=== PATIENT | female | born 2000 | race Caucasian/White ===

== ENCOUNTER 2020-09-24 23:25 | Observation (INO) ==
--- OUTSIDE RECORDS SUMMARY | 2020-09-24 23:28 | External Medical Summary | Continuity of Care Document ---
:2000 Author Name Rain Pompa Address Unavailable Unavailable , Care Team Providers Name Role Phone Ike SKAGGS Unavailable [email or web address] [place], NO Unavailable Unavailable Unavailable Unavailable Unavailable Assessments Assessed Problems:General counselling and advice on contraception Problems General counselling and advice on contraception (V25.09) (Z3 0.09) Allergies and Adverse Reactions Penicillins (Allergy) Medications Blisovi 24 Fe 1-20 MG-MCG(24) Oral Tablet Refills: 0 Calcium Gummies CHEW Refills: 0 Procedures History of wisdom tooth extraction Statu s: Completed Immunizations Immunizations not documented Family History Mother Family history of malignant neoplasm of cervix (V16.49) (Z80 .49) Status: Active Grandmother Family history of malignant neoplasm of cervix (V16.49) (Z80 .49) Status: Active Social History - Smoking Status Never smoked tobacco Interventions Discussion/SummaryReviewed various contraception methods, risks, benefits and side effects of each, including but not limited to BESSIE, vaginal ring, POP, IUD, implant, shot, barrier methods etc.Most interested in Nexplanon. Insurance paperwork and pamphlet provided to patient. Scheduling procedure reviewed. If she has missed any OCP doses recommend test prior to insertion. Plan of Treatment Planned Observations Planned Goals not documented Results No Known Results Results not documented Encounters Appointment; Janett Ramires PA-C 19-Feb-2017 14:20 Encounter Diagnosis: Problem not documented
[2020-09-25] MEDS ORDERED: ONDANSETRON INJ 2 MG/ML 2 ML VIAL IV STA ×2 (00:05→01:32)
[2020-09-25] MEDS ORDERED: SODIUM CHLORIDE 0.9% 500 ML IV ONE (00:05)
[2020-09-25] MEDS ORDERED: SODIUM CHLORIDE 0.9% 1000ML 1,000 ML IV ONE (00:05)
[2020-09-25] MEDS ORDERED: KETOROLAC TROMETHAMINE 15 MG/ML VIAL IV ONE ×2 (00:05→04:28)
--- NOTE | 2020-09-25 00:12 | Emergency Department Note ---
History of Present Illness General Chief complaint: Flank Pain Stated complaint: Pain in back Time Seen by Provider: 09/24/20 23:40 Source: patient Mode of arrival: ambulatory Limitations: no limitations History of Present Illness Maximum Pain Intensity: 7 This patient is a 20-year-old female who presents to the emergency department for evaluation of back pain and UTI. Patient was seen at [facility] yesterday due to flank pain and several weeks of urinary symptoms. She states that she did have a fever at that time. She was diagnosed with a UTI and possibly a kidney stone or kidney infection, but sent home on antibiotics. She states that the flank pain started 4 days ago and was initially intermittent. She attributed it to muscle soreness from working out. She has had some nausea, but no vomiting. She had some slight burning and frequency for the past 4 weeks. She states the symptoms were not severe. She reports she has had urinary symptoms in the past but does not take any antibiotics for them. Since being seen yesterday, she is having increased nausea and pain in her abdomen. She has been taking Tylenol for fevers and pain without relief. She rates her discomfort a 7/10. Home Medications Medication Instructions Recorded Confirmed Type Control Pill 1 tab PO DAILY 09/25/20 09/25/20 History acetaminophen [Tylenol Extra 500 mg PO DIRECTED PRN 09/25/20 09/25/20 History Strength] phenazopyridine [Pyridium] 200 mg PO TID PRN 09/25/20 09/25/20 History sulfamethoxazole-trimethoprim 1 tab PO BID 09/25/20 09/25/20 History [Bactrim DS] sumatriptan succinate 0 mg PO .COMPLEX 09/25/20 09/25/20 History Allergies Allergy/AdvReac Type Severity Reaction Status Date / Time Penicillins Allergy Unknown STRONG Verified 09/25/20 00:04 FAMILY HX OF REACTIONS Past Med/Surg History Medical History Migraines Surgical History History of mandibular surgery Family History (Updated 09/25/20 @ 03:45 by Lourdes Norman DO) Other Coronary heart disease Dementia Social History Smoking Status: Never smoker Hx Alcohol Use: Yes Alcohol type: beer, wine and hard liquor Hx Substance Use: No Preferred Language: Pashto Communication Ability: Effective Beliefs That Will Affect Care: None Current Living Situation: Alone Feels Safe at Home: Yes Assistive Devices: None Review of Systems A total of 10 systems reviewed and were otherwise negative Physical Exam Vital Signs Vital Signs - 24 hr 09/24/20 23:34 Temperature 36.4 C L Temperature Source Temporal Artery Scan Pulse Rate 113 H Respiratory Rate 20 Respiratory Depth Shallow Blood Pressure 120/85 Blood Pressure Mean 96 Pulse Oximetry 97 Oxygen Delivery Method Room Air Sepsis Recent Fever Within 48 Hours Yes Sepsis New/Unexplained Change in Mental Status No Sepsis Action Taken by Nursing No Action Required VITALS: Vitals are noted on the nurse's note and reviewed by myself. GENERAL: This is a 20-year-old female, in no acute distress, well-developed well-nourished. SKIN: The skin was without rashes. Skin is clammy. EARS: External auditory canals clear, tympanic membranes pearly gutiérrez without erythema or effusion bilaterally. EYES: Pupils equal round and reactive to light and accommodation. MOUTH: Mucous membranes moist. Tonsils are not enlarged. Pharynx without erythema or exudate. NECK: Supple without nuchal rigidity. No lymphadenopathy. HEART: Regular rate and rhythm without murmurs gallops or rubs. LUNGS: Clear to auscultation bilaterally without wheezes, rales or rhonchi. ABDOMEN: Positive bowel sounds x 4. Soft, tenderness to palpation in the epigastric region and left upper quadrant. No guarding or rebound tenderness. NEURO: Patient was alert and oriented to person place and time. Course Consultations Consultation #1: Dr. Norman - [facility] hospitalist Administered Medications Acetaminophen (Acetaminophen 325 Mg Tab) 650 mg PO Q4H PRN PRN Reason: pain or fever Stop: 10/25/20 10:55 Last Admin: 09/25/20 23:06 Dose: 650 mg Documented by: [id number] Admin: 09/25/20 19:38 Dose: 650 mg Documented by: [id number] Ceftriaxone Sodium 1,000 mg/ (Dextrose) 50 mls @ 100 mls/hr IV Q24H ERUM; Prot ocol Stop: 10/04/20 21:59 Last Infusion: 09/25/20 22:20 Dose: 0 mls/hr Documented by: [id number] Admin: 09/25/20 21:49 Dose: 100 mls/hr Documented by: [id number] Potassium Chloride/Sodium Chloride (Normal Saline W/20 Meq Kcl) 20 meq in 1,000 mls @ 80 mls/hr IV .[id number] [facility] [place] Stop: 10/25/20 18:59 Last Admin: 09/25/20 19:35 Dose: 80 mls/hr Documented by: [id number] Ketorolac Tromethamine (Ketorolac Tromethamine 15 Mg/Ml Vial) 10 mg IV Q6H PRN PRN Reason: Pain Stop: 09/30/20 07:42 Last Admin: 09/25/20 21:49 Dose: 10 mg Documented by: [id number] Admin: 09/25/20 16:17 Dose: 10 mg Documented by: [id number] Admin: 09/25/20 09:34 Dose: 10 mg Documented by: [id number] Miscellaneous ( Control Pill: Order Awaiting Action) 1 ea N/A DAILY [facility] Stop: 10/25/20 08:59 Last Admin: 09/25/20 07:50 Dose: Not Given Documented by: [id number] Ondansetron HCl (Ondansetron Inj 2 Mg/Ml 2 Ml Vial) 4 mg IV Q4H PRN PRN Reason: Nausea Stop: 10/25/20 07:43 Last Admin: 09/25/20 23:01 Dose: 4 mg Documented by: [id number] Admin: 09/25/20 17:56 Dose: 4 mg Documented by: [id number] Phenazopyridine HCl (Phenazopyridine Hcl 200 Mg Tab) 200 mg PO TID PRN PRN Reason: BLADDER PAIN Stop: 10/25/20 04:27 Last Admin: 09/25/20 23:01 Dose: 200 mg Documented by: [id number] Admin: 09/25/20 17:35 Dose: 200 mg Documented by: [id number] Polyethylene Glycol (Polyethylene (Miralax) 17 Gm Pack) 17 gm PO DAILY ERUM Stop: 10/25/20 11:29 Last Admin: 09/25/20 11:33 Dose: 17 gm Documented by: [id number] Discontinued Medications Sodium Chloride (Nss 1000ml) 1,000 mls @ 999 mls/hr IV .Q1H1M ONE Stop: 09/25/20 01:05 Last Infusion: 09/25/20 01:39 Dose: 0 mls/hr Documented by: [id number] Admin: 09/25/20 00:28 Dose: 999 mls/hr Documented by: [id number] Sodium Chloride (Nss) 500 mls @ 999 mls/hr IV .Q31M ONE Stop: 09/25/20 00:35 Last Infusion: 09/25/20 01:39 Dose: 0 mls/hr Documented by: [id number] Admin: 09/25/20 00:28 Dose: 999 mls/hr Documented by: [id number] Ceftriaxone Sodium (Rocephin) 1,000 mg in 50 mls @ 100 mls/hr IV NOW STA Stop: 09/25/20 02:06 Last Infusion: 09/25/20 02:14 Dose: 0 mls/hr Documented by: [id number] Admin: 09/25/20 01:44 Dose: 100 mls/hr Documented by: [id number] Potassium Chloride 20 meq/ (Lactated Ringer's) 1,010 mls @ 100 mls/hr IV .Q10H6M ERUM Stop: 09/25/20 12:54 Last Infusion: 09/25/20 14:55 Dose: 0 mls/hr Documented by: [id number] Admin: 09/25/20 06:51 Dose: 125 mls/hr Documented by: [id number] Prochlorperazine 5 mg/ Syringe 5 mls @ 5 mls/min IV ONE ONE Stop: 09/25/20 04:46 Last Admin: 09/25/20 04:50 Dose: Not Given Documented by: [id number] Promethazine HCl 6.25 mg/ (Sodium Chloride) 50.25 mls @ 201 mls/hr IV NOW STA Stop: 09/26/20 00:37 Last Infusion: 09/26/20 01:08 Dose: 0 mls/hr Documented by: [id number] Admin: 09/26/20 00:34 Dose: 201 mls/hr Documented by: [id number] Ioversol (Optiray 320 100ml) 100 ml IV ONCE ONE Stop: 09/25/20 01:27 Last Admin: 09/25/20 01:26 Dose: 76 ml Documented by: [id number] Ketorolac Tromethamine (Ketorolac Tromethamine 15 Mg/Ml Vial) 10 mg IV NOW ONE Stop: 09/25/20 00:06 Last Admin: 09/25/20 00:28 Dose: 10 mg Documented by: [id number] Ketorolac Tromethamine (Ketorolac Tromethamine 15 Mg/Ml Vial) Confirm Administered Dose 15 mg .ROUTE .[place] REI-MED ONE Stop: 09/25/20 03:58 Last Admin: 09/25/20 04:02 Dose: 10 mg Documented by: [id number] Ketorolac Tromethamine (Ketorolac Tromethamine 15 Mg/Ml Vial) 10 mg IV NOW ONE Stop: 09/25/20 04:29 Last Admin: 09/25/20 04:50 Dose: Not Given Documented by: [id number] Morphine Sulfate (Morphine Sulfate 4 Mg/Ml 1 Ml Carp\Vial) 4 mg IV NOW STA Stop: 09/25/20 01:33 Last Admin: 09/25/20 01:38 Dose: 4 mg Documented by: [id number] Morphine Sulfate (Morphine Sulfate 2 Mg/Ml Carp) 2 mg IV NOW STA Stop: 09/26/20 00:13 Last Admin: 09/26/20 00:34 Dose: 2 mg Documented by: [id number] Ondansetron HCl (Ondansetron Inj 2 Mg/Ml 2 Ml Vial) 4 mg IV NOW STA Stop: 09/25/20 00:06 Last Admin: 09/25/20 00:28 Dose: 4 mg Documented by: [id number] Ondansetron HCl (Ondansetron Inj 2 Mg/Ml 2 Ml Vial) 4 mg IV NOW STA Stop: 09/25/20 01:33 Last Admin: 09/25/20 01:38 Dose: 4 mg Documented by: [id number] Prochlorperazine (Prochlorperazine 5 Mg/Ml 2 Ml Vial) Confirm Administered Dose 10 mg .ROUTE .[place] [facility] ONE Stop: 09/25/20 03:57 Last Admin: 09/25/20 04:02 Dose: 5 mg Documented by: [id number] Medical Decision Making Differential Diagnosis Differential diagnosis includes renal calculus, pyelonephritis, musculoskeletal pain, ruptured AAA, aortic dissection, diverticulitis, perforated viscus, bowel obstruction, biliary pathology, pancreatitis, PE, pneumonia, pneumothorax, trauma, herpes zoster, malignancy, among others. Medical Records Attestation: I reviewed the patient's medical records. [facility] notes reviewed: Patient seen 09/23/2020 Patient was tachycardic with heart rate of 138 and febrile with temperature 101.6 F Urinalysis positive blood, positive nitrite, positive leukocytes Patient received oral Tylenol and IM Toradol Diagnosed with uncomplicated UTI and discharged on Bactrim twice daily x7 days Home Medications Current Medication List: was personally reviewed by me Laboratory Data Attestation: I reviewed the patient's lab results. Result diagrams: 09/25/20 00:19 09/25/20 08:24 Lab Results 09/25/20 09/25/20 09/25/20 Range/Units 00:19 00:19 00:19 WBC 14.22 H (4.8-10.8) K/uL RBC 4.48 (4.2-5.4) M/uL Hgb 13.9 (12.0-16.0) g/dL Hct 40.2 (37-47) % MCV 89.7 (80-100) fL MCH 31.0 (25-34) pg MCHC 34.6 (32-36) g/dL RDW Std Deviation 41.0 (36.4-46.3) fL RDW Coeff of Codey 12.5 (11.5-14.5) % Plt Count 223 (130-400) K/uL MPV 9.7 (7.4-10.4) fL Immature Gran % (Auto) 0.3 % Neut % (Auto) 77.5 % Lymph % (Auto) 16.0 % Riley % (Auto) 6.0 % Eos % (Auto) 0.1 % Baso % (Auto) 0.1 % Neut # (Auto) 11.00 H (1.4-6.5) K/uL Lymph # (Auto) 2.28 (1.2-3.4) K/uL Riley # (Auto) 0.86 H (0.11-0.59) K/uL Eos # (Auto) 0.02 (0-0.5) K/uL Baso # (Auto) 0.02 (0-0.2) K/uL Immature Gran # (Auto) 0.04 H (0.00-0.02) K/uL Sodium 138 (136-145) mmol/L Potassium 3.3 L (3.5-5.1) mmol/L Chloride 106 (98-107) mmol/L Carbon Dioxide 23 (21-32) mmol/L Anion Gap 9.0 (3-11) BUN 10 (7-18) mg/dl Creatinine 0.77 (0.6-1.2) mg/dl Est Cr Clr Drug Dosing 86.5 ml/min Est GFR ( Amer) 127.0 Est GFR (Non-Af Amer) 109.6 BUN/Creatinine Ratio 13.5 (10-20) Glucose 104 H (70-99) mg/dl Lactate 1.1 (0.4-2.0) mmol/L Calcium 8.9 (8.5-10.1) mg/dl Total Bilirubin 0.5 (0.2-1) mg/dl AST 53 H (15-37) U/L ALT 100 H (12-78) U/L Alkaline Phosphatase 77 (45-117) U/L Total Protein 8.0 (6.4-8.2) gm/dl Albumin 3.6 (3.4-5.0) gm/dl Globulin 4.4 H (2.5-4.0) gm/dl Albumin/Globulin Ratio 0.8 L (0.9-2) Lipase 54 L (73-393) U/L Urine Color Urine Appearance (Clear) Urine pH (4.5-7.5) Ur Specific [place] (1.000-1.030) Urine Protein (Negative) Urine Glucose (UA) (Negative) Urine Ketones (Negative) Urine Blood (Negative) Urine Nitrite (Negative) Urine Bilirubin (Negative) Urine Urobilinogen (Negative) Ur Leukocyte Esterase (Negative) Urine RBC (0-4) /hpf Urine WBC (0-5) /hpf Ur Epithelial Cells (0-5) /lpf Urine Bacteria (Negative) Urine Mucus (None Prsent) Urine Test (Negative) Acetaminophen (10-30) ug/ml COVID-19 Eval Order SARS-CoV-2 (PCR) (Negative) Influenza Type A (PCR) (Neg) Influenza Type B (PCR) (Neg) RSV (RT-PCR) (Neg) 09/25/20 09/25/20 09/25/20 Range/Units 00:21 00:21 01:30 WBC (4.8-10.8) K/uL RBC (4.2-5.4) M/uL Hgb (12.0-16.0) g/dL Hct (37-47) % MCV (80-100) fL MCH (25-34) pg MCHC (32-36) g/dL RDW Std Deviation (36.4-46.3) fL RDW Coeff of Codey (11.5-14.5) % Plt Count (130-400) K/uL MPV (7.4-10.4) fL Immature Gran % (Auto) % Neut % (Auto) % Lymph % (Auto) % Riley % (Auto) % Eos % (Auto) % Baso % (Auto) % Neut # (Auto) (1.4-6.5) K/uL Lymph # (Auto) (1.2-3.4) K/uL Riley # (Auto) (0.11-0.59) K/uL Eos # (Auto) (0-0.5) K/uL Baso # (Auto) (0-0.2) K/uL Immature Gran # (Auto) (0.00-0.02) K/uL Sodium (136-145) mmol/L Potassium (3.5-5.1) mmol/L Chloride (98-107) mmol/L Carbon Dioxide (21-32) mmol/L Anion Gap (3-11) BUN (7-18) mg/dl Creatinine (0.6-1.2) mg/dl Est Cr Clr Drug Dosing ml/min Est GFR ( Amer) Est GFR (Non-Af Amer) BUN/Creatinine Ratio (10-20) Glucose (70-99) mg/dl Lactate (0.4-2.0) mmol/L Calcium (8.5-10.1) mg/dl Total Bilirubin (0.2-1) mg/dl AST (15-37) U/L ALT (12-78) U/L Alkaline Phosphatase (45-117) U/L Total Protein (6.4-8.2) gm/dl Albumin (3.4-5.0) gm/dl Globulin (2.5-4.0) gm/dl Albumin/Globulin Ratio (0.9-2) Lipase (73-393) U/L Urine Color [place] Urine Appearance Slightly Cloudy (Clear) Urine pH (4.5-7.5) Ur Specific [place] 1.017 (1.000-1.030) Urine Protein (Negative) Urine Glucose (UA) (Negative) Urine Ketones (Negative) Urine Blood (Negative) Urine Nitrite (Negative) Urine Bilirubin (Negative) Urine Urobilinogen (Negative) Ur Leukocyte Esterase (Negative) Urine RBC 0-4 (0-4) /hpf Urine WBC >30 H (0-5) /hpf Ur Epithelial Cells >30 H (0-5) /lpf Urine Bacteria 1+ H (Negative) Urine Mucus Present A (None Prsent) Urine Test Negative (Negative) Acetaminophen 14 (10-30) ug/ml COVID-19 Eval Order SARS-CoV-2 (PCR) (Negative) Influenza Type A (PCR) (Neg) Influenza Type B (PCR) (Neg) RSV (RT-PCR) (Neg) 09/25/20 09/25/20 Range/Units 02:05 02:05 WBC (4.8-10.8) K/uL RBC (4.2-5.4) M/uL Hgb (12.0-16.0) g/dL Hct (37-47) % MCV (80-100) fL MCH (25-34) pg MCHC (32-36) g/dL RDW Std Deviation (36.4-46.3) fL RDW Coeff of Codey (11.5-14.5) % Plt Count (130-400) K/uL MPV (7.4-10.4) fL Immature Gran % (Auto) % Neut % (Auto) % Lymph % (Auto) % Riley % (Auto) % Eos % (Auto) % Baso % (Auto) % Neut # (Auto) (1.4-6.5) K/uL Lymph # (Auto) (1.2-3.4) K/uL Riley # (Auto) (0.11-0.59) K/uL Eos # (Auto) (0-0.5) K/uL Baso # (Auto) (0-0.2) K/uL Immature Gran # (Auto) (0.00-0.02) K/uL Sodium (136-145) mmol/L Potassium (3.5-5.1) mmol/L Chloride (98-107) mmol/L Carbon Dioxide (21-32) mmol/L Anion Gap (3-11) BUN (7-18) mg/dl Creatinine (0.6-1.2) mg/dl Est Cr Clr Drug Dosing ml/min Est GFR ( Amer) Est GFR (Non-Af Amer) BUN/Creatinine Ratio (10-20) Glucose (70-99) mg/dl Lactate (0.4-2.0) mmol/L Calcium (8.5-10.1) mg/dl Total Bilirubin (0.2-1) mg/dl AST (15-37) U/L ALT (12-78) U/L Alkaline Phosphatase (45-117) U/L Total Protein (6.4-8.2) gm/dl Albumin (3.4-5.0) gm/dl Globulin (2.5-4.0) gm/dl Albumin/Globulin Ratio (0.9-2) Lipase (73-393) U/L Urine Color Urine Appearance (Clear) Urine pH (4.5-7.5) Ur Specific [place] (1.000-1.030) Urine Protein (Negative) Urine Glucose (UA) (Negative) Urine Ketones (Negative) Urine Blood (Negative) Urine Nitrite (Negative) Urine Bilirubin (Negative) Urine Urobilinogen (Negative) Ur Leukocyte Esterase (Negative) Urine RBC (0-4) /hpf Urine WBC (0-5) /hpf Ur Epithelial Cells (0-5) /lpf Urine Bacteria (Negative) Urine Mucus (None Prsent) Urine Test (Negative) Acetaminophen (10-30) ug/ml COVID-19 Eval Order CovFluRsv at [facility] SARS-CoV-2 (PCR) NEGATIVE (Negative) Influenza Type A (PCR) Negative (Neg) Influenza Type B (PCR) Negative (Neg) RSV (RT-PCR) Negative (Neg) Imaging Data Attestation: I personally reviewed and interpreted this imaging study as follows: Radiologist's Impression: CT ABDOMEN & PELVIS With Contrast: Heterogeneous enhancement of the left kidney, likely pyelonephritis. Associated urothelial thickening of the left ureter. Correlate with urinalysis. Right kidney is normal. Urinary bladder appears normal. Normal gallbladder. Enlarged common bile duct measuring 8 mm, of uncertain clinical significance. If there is laboratory evidence of biliary obstruction, consider MRCP. No bowel obstruction or inflammation. Normal appendix. No acute osseous findings. Radiologist: Ashley Mcmanus M.D. MDM Narrative Continuous hall monitor: Order was placed for continuous hall monitor. Patient was placed on the hall monitor. Patient was noted to be in sinus tachycardia at an initial rate of 113 bpm. The patient is a 20-year-old female who presents today complaining of flank pain as well as epigastric pain. Patient had been seen yesterday as an outpatient due to flank pain and urinary symptoms. At that time, she had been febrile and tachycardic but was placed on antibiotics and sent home. On arrival here, patient is tachycardic. CT is suggestive of pyelonephritis, although also has an enlarged common bile duct and mild elevation of AST/ALT. Unclear of the significance of this, but will require further work-up. Patient was given IV Rocephin and 1500 mL of normal saline solution (30 mL/kg). She was given Toradol and morphine for pain, Zofran for nausea. The case was discussed with the [facility] hospitalist service, who agreed to evaluate the patient for further care. Impression & Plan Pyelonephritis, Abnormal LFTs, Common bile duct dilatation Discharge Plan Visit Data Chief Complaint: Flank Pain Stated Complaint: Pain in back ED Provider: Sheldon Swan ED Midlevel Provider: Archana Pedro Discharge Problem: Pyelonephritis, Abnormal LFTs, Common bile duct dilatation Patient Disposition: Admitted As Inpatient Discharge Instructions Interventions: ED Discharge Assessment Last Done: 09/25/20 03:54
[2020-09-25 00:32] LABS: Basophils # (auto) 0.02 K/uL (0-0.2); Basophils % (auto) 0.1 %; Eosinophils # (auto) 0.02 K/uL (0-0.5); Eosinophils % (auto) 0.1 %; Hematocrit (blood only) 40.2 % (37-47); Hemoglobin 13.9 g/dL (12.0-16.0); Immature Granulocytes # (auto) 0.04 K/uL (0.00-0.02); Immature Granulocytes % (auto) 0.3 %; Lymphocytes # (auto) 2.28 K/uL (1.2-3.4); Mean Corpuscular Hgb Conc 34.6 g/dL (32-36); Mean Corpuscular Volume 89.7 fL (80-100); Mean Platelet Volume 9.7 fL (7.4-10.4); Monocytes # (auto) 0.86 K/uL (0.11-0.59); Neutrophils % (auto) 77.5 %; Platelet Count 223 K/uL (130-400); RDW Coefficient of Variation 12.5 % (11.5-14.5); Red Blood Count 4.48 M/uL (4.2-5.4); White Blood Count 14.22 K/uL (4.8-10.8)
[2020-09-25 00:47] LABS: Color Urine Orange
[2020-09-25 00:48] LABS: Appearance Urine Slightly Cloudy (Clear); Specific Gravity Urine 1.017 (1.000-1.030)
[2020-09-25 00:50] LABS: Albumin Level 3.6 gm/dl (3.4-5.0); BUN Creatinine Ratio 13.5 (10-20); Calcium 8.9 mg/dl (8.5-10.1); Creatinine Clr Calc Pharmacy 86.5 ml/min; Est GFR (Non-African American) 109.6; Potassium 3.3 mmol/L (3.5-5.1)
[2020-09-25 00:50] LABS: Bacteria Urine 1+ (Negative); Epithelial Cell Urine >30 /lpf (0-5); Mucus Urine Present (None Prsent); WBC Urine >30 /hpf (0-5)
[2020-09-25 00:53] LABS: Albumin Globulin Ratio 0.8 (0.9-2); Bilirubin,Total 0.5 mg/dl (0.2-1); Globulin 4.4 gm/dl (2.5-4.0)
[2020-09-25 00:57] LABS: RBC Urine 0-4 /hpf (0-4)
[2020-09-25 01:03] LABS: Pregnancy Test, Urine Negative (Negative)
[2020-09-25] MEDS ORDERED: OPTIRAY 320 100ml IV ONE (01:26)
[2020-09-25] MEDS ORDERED: MoRPHine SULFATE 4 MG/ML 1 ML CARP\\VIAL IV STA (01:32)
[2020-09-25] MEDS ORDERED: cefTRIAXone SODIUM 1,000 MG/50 ML BAG IV STA (01:37)
[2020-09-25 02:49] LABS: Influenza A virus by PCR Negative (Neg); Influenza B virus by PCR Negative (Neg); RSV by PCR Negative (Neg); SARS CoV2 RNA(COVID-19) InHosp NEGATIVE (Negative)
--- NOTE | 2020-09-25 03:08 | History & Physical Report ---
Date of Service September 25, 2020 Assessment & Plan (1) Pyelonephritis: Patient afebrile at present, HD stable, NAD -Follow urine culture -Ceftriaxone 1gm IV daily -Toradol PRN -Tylenol PRN -Zofran PRN Present on Admission?: Yes (2) Abnormal LFTs: Patient with mildly elevated AST and ALT with normal Tbili and AP. She has some RUQ tenderness. CT with dilated CBD of 8mm -Check MRCP -Repeat LFTs in AM F/E/N - Continue IVF with K repletion, NPO for now Ppx - Low risk for DVT Code - Full Dispo - Observation to medical floor Present on Admission?: Yes History of Present Illness Chief Complaint: flank pain, abdominal pain Primary Care Provider: [facility] Federica Monsalve is a 20yo female with no significant past medical history presenting with left flank pain which started 3 days ago - pain progressive, yesterday was very severe. She was seen at [facility] and diagnosed with a UTI, possible pyelonephritis. She was given Bactrim. Today she developed epigastric abdominal pain, nausea. She has had fever to 102.7, chills. No additional complaints at this time. ER Course: Tylenol. Ceftriaxone. Zofran, Morphine, Toradol Allergies Allergy/AdvReac Type Severity Reaction Status Date / Time Penicillins Allergy Unknown STRONG Verified 09/25/20 00:04 FAMILY HX OF REACTIONS Home Medications Medication Instructions Recorded Confirmed Type Control Pill 1 tab PO DAILY 09/25/20 09/25/20 History acetaminophen [Tylenol Extra 500 mg PO DIRECTED PRN 09/25/20 09/25/20 History Strength] phenazopyridine [Pyridium] 200 mg PO TID PRN 09/25/20 09/25/20 History sulfamethoxazole-trimethoprim 1 tab PO BID 09/25/20 09/25/20 History [Bactrim DS] sumatriptan succinate 0 mg PO .COMPLEX 09/25/20 09/25/20 History Past Med/Surg History Medical History (Updated 09/25/20 @ 03:49 by Lourdes Norman DO) Migraines Surgical History History of mandibular surgery Family History (Updated 09/25/20 @ 03:45 by Lourdes Norman DO) Other Coronary heart disease Dementia Social History Smoking Status: Never smoker Hx Alcohol Use: Yes Alcohol type: beer, wine and hard liquor Hx Substance Use: No Preferred Language: Monegasque Communication Ability: Effective Beliefs That Will Affect Care: None Current Living Situation: Alone Other Information That Helps Us Care for You: No Feels Safe at Home: Yes Assistive Devices: Glasses Review of Systems Review of Systems: All systems reviewed & are unremarkable except as noted in HPI & below +Nausea +Abdominal pain +Chills Physical Exam Physical Exam: General: patient resting comfortably, NAD, non-toxic in appearance, AA&O x 4 Skin: warm, dry, intact, no rashes or lesions HEENT: NC/AT, PERRL, EOMI, anicteric sclera, conjunctiva without injection, external ear normal to inspection and nontender, nares patent, moist mucus membranes, dentition intact, no oropharyngeal lesions, neck supple, trachea midline, no LAD, no thyromegaly, no JVD Heart: +S1/S2, regular, no m/r/g Lungs: equal air entry bilaterally, no rales/rhonchi/wheezes Abd: +BS, soft, tender in epigastrium and RUQ, no masses/organomegaly/ascites Ext: warm, 2+ pulses in UE/LE bilaterally, no clubbing/cyanosis or edema Neuro: nonfocal, patient AA&O x 4, speech intact, no facial droop, moving all extremities on command with equal strength 5/5 Results & Data Results & Data ([facility]) Vital Signs (Past 12 Hours) Vital Signs Temp Pulse Pulse Resp BP BP Pulse Ox 09/25/20 03:00 100 H 18 94 09/25/20 02:40 100 H 17 123/71 94 09/25/20 02:37 95 H 13 116/78 94 09/25/20 01:48 96 H 13 116/78 96 09/25/20 00:54 95 09/25/20 00:49 90 12 118/68 95 09/24/20 23:34 36.4 C L 113 H 20 120/85 97 Laboratory Results Lab Results 09/25/20 09/25/20 09/25/20 Range/Units 00:19 00:19 00:19 WBC 14.22 H (4.8-10.8) K/uL RBC 4.48 (4.2-5.4) M/uL Hgb 13.9 (12.0-16.0) g/dL Hct 40.2 (37-47) % MCV 89.7 (80-100) fL MCH 31.0 (25-34) pg MCHC 34.6 (32-36) g/dL RDW Std Deviation 41.0 (36.4-46.3) fL RDW Coeff of Codey 12.5 (11.5-14.5) % Plt Count 223 (130-400) K/uL MPV 9.7 (7.4-10.4) fL Immature Gran % (Auto) 0.3 % Neut % (Auto) 77.5 % Lymph % (Auto) 16.0 % Chase % (Auto) 6.0 % Eos % (Auto) 0.1 % Baso % (Auto) 0.1 % Neut # (Auto) 11.00 H (1.4-6.5) K/uL Lymph # (Auto) 2.28 (1.2-3.4) K/uL Chase # (Auto) 0.86 H (0.11-0.59) K/uL Eos # (Auto) 0.02 (0-0.5) K/uL Baso # (Auto) 0.02 (0-0.2) K/uL Immature Gran # (Auto) 0.04 H (0.00-0.02) K/uL Sodium 138 (136-145) mmol/L Potassium 3.3 L (3.5-5.1) mmol/L Chloride 106 (98-107) mmol/L Carbon Dioxide 23 (21-32) mmol/L Anion Gap 9.0 (3-11) BUN 10 (7-18) mg/dl Creatinine 0.77 (0.6-1.2) mg/dl Est Cr Clr Drug Dosing 86.5 ml/min Est GFR ( Amer) 127.0 Est GFR (Non-Af Amer) 109.6 BUN/Creatinine Ratio 13.5 (10-20) Glucose 104 H (70-99) mg/dl Lactate 1.1 (0.4-2.0) mmol/L Calcium 8.9 (8.5-10.1) mg/dl Total Bilirubin 0.5 (0.2-1) mg/dl AST 53 H (15-37) U/L ALT 100 H (12-78) U/L Alkaline Phosphatase 77 (45-117) U/L Total Protein 8.0 (6.4-8.2) gm/dl Albumin 3.6 (3.4-5.0) gm/dl Globulin 4.4 H (2.5-4.0) gm/dl Albumin/Globulin Ratio 0.8 L (0.9-2) Lipase 54 L (73-393) U/L Urine Color Urine Appearance (Clear) Urine pH (4.5-7.5) Ur Specific [place] (1.000-1.030) Urine Protein (Negative) Urine Glucose (UA) (Negative) Urine Ketones (Negative) Urine Blood (Negative) Urine Nitrite (Negative) Urine Bilirubin (Negative) Urine Urobilinogen (Negative) Ur Leukocyte Esterase (Negative) Urine RBC (0-4) /hpf Urine WBC (0-5) /hpf Ur Epithelial Cells (0-5) /lpf Urine Bacteria (Negative) Urine Mucus (None Prsent) Urine Test (Negative) Acetaminophen (10-30) ug/ml COVID-19 Eval Order SARS-CoV-2 (PCR) (Negative) Influenza Type A (PCR) (Neg) Influenza Type B (PCR) (Neg) RSV (RT-PCR) (Neg) 09/25/20 09/25/20 09/25/20 Range/Units 00:21 00:21 01:30 WBC (4.8-10.8) K/uL RBC (4.2-5.4) M/uL Hgb (12.0-16.0) g/dL Hct (37-47) % MCV (80-100) fL MCH (25-34) pg MCHC (32-36) g/dL RDW Std Deviation (36.4-46.3) fL RDW Coeff of Codey (11.5-14.5) % Plt Count (130-400) K/uL MPV (7.4-10.4) fL Immature Gran % (Auto) % Neut % (Auto) % Lymph % (Auto) % Chase % (Auto) % Eos % (Auto) % Baso % (Auto) % Neut # (Auto) (1.4-6.5) K/uL Lymph # (Auto) (1.2-3.4) K/uL Chase # (Auto) (0.11-0.59) K/uL Eos # (Auto) (0-0.5) K/uL Baso # (Auto) (0-0.2) K/uL Immature Gran # (Auto) (0.00-0.02) K/uL Sodium (136-145) mmol/L Potassium (3.5-5.1) mmol/L Chloride (98-107) mmol/L Carbon Dioxide (21-32) mmol/L Anion Gap (3-11) BUN (7-18) mg/dl Creatinine (0.6-1.2) mg/dl Est Cr Clr Drug Dosing ml/min Est GFR ( Amer) Est GFR (Non-Af Amer) BUN/Creatinine Ratio (10-20) Glucose (70-99) mg/dl Lactate (0.4-2.0) mmol/L Calcium (8.5-10.1) mg/dl Total Bilirubin (0.2-1) mg/dl AST (15-37) U/L ALT (12-78) U/L Alkaline Phosphatase (45-117) U/L Total Protein (6.4-8.2) gm/dl Albumin (3.4-5.0) gm/dl Globulin (2.5-4.0) gm/dl Albumin/Globulin Ratio (0.9-2) Lipase (73-393) U/L Urine Color Grundy Urine Appearance Slightly Cloudy (Clear) Urine pH (4.5-7.5) Ur Specific [place] 1.017 (1.000-1.030) Urine Protein (Negative) Urine Glucose (UA) (Negative) Urine Ketones (Negative) Urine Blood (Negative) Urine Nitrite (Negative) Urine Bilirubin (Negative) Urine Urobilinogen (Negative) Ur Leukocyte Esterase (Negative) Urine RBC 0-4 (0-4) /hpf Urine WBC >30 H (0-5) /hpf Ur Epithelial Cells >30 H (0-5) /lpf Urine Bacteria 1+ H (Negative) Urine Mucus Present A (None Prsent) Urine Test Negative (Negative) Acetaminophen 14 (10-30) ug/ml COVID-19 Eval Order SARS-CoV-2 (PCR) (Negative) Influenza Type A (PCR) (Neg) Influenza Type B (PCR) (Neg) RSV (RT-PCR) (Neg) 09/25/20 09/25/20 Range/Units 02:05 02:05 WBC (4.8-10.8) K/uL RBC (4.2-5.4) M/uL Hgb (12.0-16.0) g/dL Hct (37-47) % MCV (80-100) fL MCH (25-34) pg MCHC (32-36) g/dL RDW Std Deviation (36.4-46.3) fL RDW Coeff of Codey (11.5-14.5) % Plt Count (130-400) K/uL MPV (7.4-10.4) fL Immature Gran % (Auto) % Neut % (Auto) % Lymph % (Auto) % Chase % (Auto) % Eos % (Auto) % Baso % (Auto) % Neut # (Auto) (1.4-6.5) K/uL Lymph # (Auto) (1.2-3.4) K/uL Chase # (Auto) (0.11-0.59) K/uL Eos # (Auto) (0-0.5) K/uL Baso # (Auto) (0-0.2) K/uL Immature Gran # (Auto) (0.00-0.02) K/uL Sodium (136-145) mmol/L Potassium (3.5-5.1) mmol/L Chloride (98-107) mmol/L Carbon Dioxide (21-32) mmol/L Anion Gap (3-11) BUN (7-18) mg/dl Creatinine (0.6-1.2) mg/dl Est Cr Clr Drug Dosing ml/min Est GFR ( Amer) Est GFR (Non-Af Amer) BUN/Creatinine Ratio (10-20) Glucose (70-99) mg/dl Lactate (0.4-2.0) mmol/L Calcium (8.5-10.1) mg/dl Total Bilirubin (0.2-1) mg/dl AST (15-37) U/L ALT (12-78) U/L Alkaline Phosphatase (45-117) U/L Total Protein (6.4-8.2) gm/dl Albumin (3.4-5.0) gm/dl Globulin (2.5-4.0) gm/dl Albumin/Globulin Ratio (0.9-2) Lipase (73-393) U/L Urine Color Urine Appearance (Clear) Urine pH (4.5-7.5) Ur Specific [place] (1.000-1.030) Urine Protein (Negative) Urine Glucose (UA) (Negative) Urine Ketones (Negative) Urine Blood (Negative) Urine Nitrite (Negative) Urine Bilirubin (Negative) Urine Urobilinogen (Negative) Ur Leukocyte Esterase (Negative) Urine RBC (0-4) /hpf Urine WBC (0-5) /hpf Ur Epithelial Cells (0-5) /lpf Urine Bacteria (Negative) Urine Mucus (None Prsent) Urine Test (Negative) Acetaminophen (10-30) ug/ml COVID-19 Eval Order [facility]FluRsv at [facility] SARS-CoV-2 (PCR) NEGATIVE (Negative) Influenza Type A (PCR) Negative (Neg) Influenza Type B (PCR) Negative (Neg) RSV (RT-PCR) Negative (Neg) Diagnostic Findings CT Abdomen/Pelvis with Contrast: Heterogenous enhancement of left kidney, likely pyelonephritis. Associated urothelial thickening of the left ureter. Correlate with UA. Right kidney is normal. Urinary bladder appears normal. Normal gallbladder. Enlarged CBD measuring 8mm of uncertain clinical significance. If there is laboratory evidence of biliary obstruction consider MRCP. No bowel obstruction or inflammation. Normal appendix. No acute osseous findings. PG Care Time/CCT Total # of Minutes Spent Total Time Spent with Patient: Total time spent is greater than 50% in coordination of care (as documented) at patient's floor/unit and/or counseling patient: Coding Level of Care Code 98139 OBS Care - Level 2 Diagnoses Pyelonephritis N12 Abnormal LFTs R94.5
[2020-09-25] MEDS ORDERED: PROCHLORPERAZINE 5 MG/ML 2 ML VIAL ONE (03:56)
[2020-09-25] MEDS ORDERED: KETOROLAC TROMETHAMINE 15 MG/ML VIAL ONE (03:57)
[2020-09-25] MEDS ORDERED: POTASSIUM CHLORIDE 20 MEQ in LACTATED RINGER'S 1,000 ML IV SCH (04:28)
[2020-09-25] MEDS ORDERED: PROCHLORPERAZINE 5 MG in SYRINGE 4 ML IV ONE (04:45)
--- NOTE | 2020-09-25 07:27 | CT Scan Report ---
CT SCAN OF THE ABDOMEN AND PELVIS WITH IV CONTRAST CLINICAL HISTORY: Left upper quadrant abdominal pain. Left flank pain. COMPARISON STUDY: No priors. TECHNIQUE: Following the IV administration of 76 cc of Optiray 320, CT scan of the abdomen and pelvi s is performed from the lung bases to the proximal femora. Images are reviewed in the axial, sagittal , and coronal planes. IV contrast was administered without complication. A dose lowering technique wa s utilized adhering to the principles of ALARA. CT DOSE: 253.20 mGy.cm FINDINGS: Lung bases: The heart is normal in size and without pericardial effusion. The lung bases are clear. Liver: The contrast-enhanced liver is normal in size, contour, and attenuation. There is no intrahepa tic biliary ductal dilatation. The hepatic veins and portal veins are patent. Gallbladder: The gallbladder is mildly distended but otherwise normal in appearance. Spleen: Normal in size and attenuation. Pancreas: Unremarkable. Adrenal glands: Unremarkable. Kidneys: The contrast enhanced kidneys are normal in size and without hydronephrosis. There is hetero geneous enhancement of the left kidney with a striated nephrogram. Urothelial thickening and enhancem ent is noted in the left renal pelvis and along the course of the left ureter. There is left-sided pe rinephric stranding. The right kidney enhances homogeneously. Abdominal vasculature: The abdominal aorta is normal in course and caliber. Bowel: There is no bowel obstruction. Mild to moderate fecal retention is noted throughout the colon. The appendix is well-visualized and normal. Peritoneum: There is no intraperitoneal free air or abdominal ascites. There is a fat-containing umbi lical hernia. Lymphadenopathy: None. Pelvic viscera: The bladder wall appears circumferentially thickened. The uterus and adnexa are lilli l as visualized noting bilateral ovarian follicles. A small volume of free fluid is seen in the pelvi s. Skeletal structures: No lytic or blastic lesions are seen. IMPRESSION: 1. Findings are typical for cystitis with left-sided ascending urinary tract infection/pyelonephritis . Correlate with clinical findings and urinalysis. 2. A small volume of nonspecific free fluid in the cul-de-sac is likely physiologic. ACT 112: Negative or not required by law. Electronically signed by: Ifeanyi Thomas M.D. 09/25/2020 7:25 AM
[2020-09-25] MEDS ORDERED: ACETAMINOPHEN 1,000 MG/100 ML VIAL IV PRN (07:43)
--- NOTE | 2020-09-25 08:30 | Magnetic Resonance Report ---
MR MRCP HISTORY: Abnormal CT. dilated CBD 8mm TECHNIQUE: MRCP of the abdomen was performed without contrast according to standard departmental prot ocol. COMPARISON STUDY: Abdomen and pelvis CT 09/25/2020. FINDINGS: The lung bases are clear. The liver, spleen, adrenal glands, pancreas, and right kidney are unremarkable. Slightly heterogeneous left kidney with mild left perinephric edema. This is consisten t with the pyelonephritis seen on the prior study. No retroperitoneal lymphadenopathy. Normal caliber abdominal aorta. No gallbladder wall thickening. No gallstones. The common bile duct is borderline d ilated measuring 6.3 mm.. No intrahepatic bile duct dilatation. No filling defects seen within the bi le duct. The main pancreatic duct is normal in course and caliber. IMPRESSION: 1. Borderline dilated common bile that measures 6.3 mm. This is improved compared to the prior study. No filling defects within the common bile duct. 2. The main pancreatic duct is normal in course and caliber. 3. Heterogeneous left kidney with mild perinephric edema. This corresponds to the pyelonephritis seen on the prior CT examination. ACT 112: Negative or not required by law. Electronically signed by: Omega Ledesma M.D. 09/25/2020 8:29 AM
[2020-09-25 09:30] LABS: Albumin Level 2.6 gm/dl (3.4-5.0); Calcium 8.2 mg/dl (8.5-10.1); Creatinine Clr Calc Pharmacy 109.2 ml/min; Est GFR (African American) 149.1; Est GFR (Non-African American) 128.7; Potassium 3.5 mmol/L (3.5-5.1)
[2020-09-25] MEDS: KETOROLAC TROMETHAMINE 15 MG/ML VIAL IV PRN ×3 (09:34→21:49)
[2020-09-25 09:35] LABS: Albumin Globulin Ratio 0.9 (0.9-2); Bilirubin,Total 0.4 mg/dl (0.2-1); Globulin 2.9 gm/dl (2.5-4.0); Total Protein 5.5 gm/dl (6.4-8.2)
--- NOTE | 2020-09-25 11:00 | History & Physical Bridge Note ---
Date of Service September 25, 2020 History & Physical Bridge Note I have examined the patient, reviewed the History & Physical and in the interval since the performance of the History & Physical I have noted the following changes of clinical significance: no changes noted Patient states pain improved but still present. LLQ and back with CVA tenderness Urine culture pending -- follow Continued on ceftriaxone IVF LR+20K @ 125cc/hr (can decrease to 100cc/hr while eating for today and d/c after 1 L and keeping up with PO. Measure I&O Added tylenol, toradol prn for pain/fever No further temps K-pad for comfort Miralax for BM given constipation and could cause worsening pain (No BM since Wednesday) Ordered diet as MRCP with improvement and no issues with acute katy/stone -- could have stone that passed? She states strong family history of kidney stones but unsure what type of stone "the ones that hurt" per her father on the phone. No stones on imaging but she does feel that there may have been some blood in her urine at [facility] as well. Took 3 doses of Bactrim prior to admission with worsening abd pain/nausea -- improved Tolerating some breakfast but not very hungry. Supervising Physician Co-Signing Physician Notes PA Supervision Note: I did not personally see or examine the patient today, but I verified all rico points of MELISSA Araujo's assessment and plan with the following exceptions/additions: None
[2020-09-25] MEDS: POLYETHYLENE (MIRALAX) 17 GM PACK PO SCH (11:33)
[2020-09-25] MEDS: PHENAZOPYRIDINE HCL 200 MG TAB PO PRN ×2 (17:35→23:01)
[2020-09-25] MEDS: ONDANSETRON INJ 2 MG/ML 2 ML VIAL IV PRN ×2 (17:56→23:01)
[2020-09-25] MEDS ORDERED: POTASSIUM CHLORIDE 20 MEQ in SODIUM CHLORIDE 0.9% 1000ML 1,000 ML IV SCH (19:00)
[2020-09-25] MEDS: NSS + 20MEQ KCL 20 MEQ/1,000 ML BAG IV SCH (19:35)
[2020-09-25] MEDS: ACETAMINOPHEN 325 MG TAB PO PRN ×2 (19:38→23:06)
[2020-09-25] MEDS ORDERED: cefTRIAXone SODIUM 1,000 MG in DEXTROSE 5% 50 ML IV SCH (22:00)
[2020-09-26] MEDS ORDERED: MoRPHine SULFATE 2 MG/ML CARP IV STA (00:12)
[2020-09-26] MEDS ORDERED: PROMETHAZINE HCL 6.25 MG in SODIUM CHLORIDE 0.9% 50 ML IV STA (00:23)
[2020-09-26] MEDS: NSS + 20MEQ KCL 20 MEQ/1,000 ML BAG IV SCH (07:31)
[2020-09-26] MEDS: oxyCODONE HCL IR 5 MG TAB (IMMEDIATE RELEASE) PO PRN ×2 (07:31→15:25)
[2020-09-26] MEDS: POLYETHYLENE (MIRALAX) 17 GM PACK PO SCH (07:32)
[2020-09-26 08:19] LABS: Basophils # (auto) 0.01 K/uL (0-0.2); Basophils % (auto) 0.1 %; Eosinophils # (auto) 0.06 K/uL (0-0.5); Eosinophils % (auto) 0.9 %; Hematocrit (blood only) 32.5 % (37-47); Hemoglobin 10.7 g/dL (12.0-16.0); Immature Granulocytes # (auto) 0.02 K/uL (0.00-0.02); Immature Granulocytes % (auto) 0.3 %; Lymphocytes # (auto) 1.71 K/uL (1.2-3.4); Lymphocytes % (auto) 25.5 %; Mean Corpuscular Hemoglobin 30.3 pg (25-34); Mean Corpuscular Hgb Conc 32.9 g/dL (32-36); Mean Corpuscular Volume 92.1 fL (80-100); Mean Platelet Volume 9.1 fL (7.4-10.4); Monocytes # (auto) 0.51 K/uL (0.11-0.59); Monocytes % (auto) 7.6 %; Neutrophils # (auto) 4.39 K/uL (1.4-6.5); Neutrophils % (auto) 65.6 %; Platelet Count 154 K/uL (130-400); RDW Coefficient of Variation 12.9 % (11.5-14.5); RDW Standard Deviation 43.8 fL (36.4-46.3); Red Blood Count 3.53 M/uL (4.2-5.4)
[2020-09-26 08:25] LABS: Alanine Aminotransferase 62 U/L (12-78); Albumin Level 2.5 gm/dl (3.4-5.0); Aspartate Aminotransferase 29 U/L (15-37); BUN Creatinine Ratio 10.8 (10-20); Bilirubin Direct < 0.1 mg/dl (0-0.2); Blood Urea Nitrogen 7 mg/dl (7-18); Calcium 8.4 mg/dl (8.5-10.1); Carbon Dioxide 22 mmol/L (21-32); Chloride 111 mmol/L (98-107); Creatinine Clr Calc Pharmacy 100.9 ml/min; Est GFR (African American) 145.3; Est GFR (Non-African American) 125.4; Glucose 82 mg/dl (70-99); Potassium 3.8 mmol/L (3.5-5.1); Sodium 140 mmol/L (136-145)
[2020-09-26 08:28] LABS: Alkaline Phosphatase 98 U/L (45-117); Bilirubin,Total 0.5 mg/dl (0.2-1); Total Protein 5.7 gm/dl (6.4-8.2)
--- NOTE | 2020-09-26 09:38 | Hospitalist Progress Note ---
Date of Service September 26, 2020 Assessment & Plan (1) Pyelonephritis: Patient afebrile at present, HD stable, NAD -Follow urine culture -Ceftriaxone 1gm IV daily -Toradol PRN -Tylenol PRN -Zofran PRN (2) Abnormal LFTs: Patient with mildly elevated AST and ALT with normal Tbili and AP. She has some RUQ tenderness. CT with dilated CBD of 8mm -Check MRCP -Repeat LFTs in AM F/E/N - Continue IVF with K repletion, NPO for now Ppx - Low risk for DVT Code - Full Dispo - Observation to medical floor Admission and Anticipated Discharge Date Admission Date: September 25, 2020 Results & Data Results & Data ([facility]) Vital Signs (Past 12 Hours) Vital Signs Temp Pulse Resp BP BP Pulse Ox 09/26/20 07:26 37 C 87 16 97/62 L 96 09/25/20 23:12 36.6 C 88 18 104/69 97 Laboratory Results 09/26/20 09/26/20 Range/Units 07:43 07:43 WBC 6.70 (4.8-10.8) K/uL RBC 3.53 L (4.2-5.4) M/uL Hgb 10.7 L D (12.0-16.0) g/dL Hct 32.5 L (37-47) % MCV 92.1 (80-100) fL MCH 30.3 (25-34) pg MCHC 32.9 (32-36) g/dL RDW Std Deviation 43.8 (36.4-46.3) fL RDW Coeff of Codey 12.9 (11.5-14.5) % Plt Count 154 (130-400) K/uL MPV 9.1 (7.4-10.4) fL Immature Gran % (Auto) 0.3 % Neut % (Auto) 65.6 % Lymph % (Auto) 25.5 % Ransom % (Auto) 7.6 % Eos % (Auto) 0.9 % Baso % (Auto) 0.1 % Neut # (Auto) 4.39 (1.4-6.5) K/uL Lymph # (Auto) 1.71 (1.2-3.4) K/uL Ransom # (Auto) 0.51 (0.11-0.59) K/uL Eos # (Auto) 0.06 (0-0.5) K/uL Baso # (Auto) 0.01 (0-0.2) K/uL Immature Gran # (Auto) 0.02 (0.00-0.02) K/uL Sodium 140 (136-145) mmol/L Potassium 3.8 (3.5-5.1) mmol/L Chloride 111 H (98-107) mmol/L Carbon Dioxide 22 (21-32) mmol/L Anion Gap 7.0 (3-11) BUN 7 (7-18) mg/dl Creatinine 0.66 (0.6-1.2) mg/dl Est Cr Clr Drug Dosing 100.9 ml/min Est GFR ( Amer) 145.3 Est GFR (Non-Af Amer) 125.4 BUN/Creatinine Ratio 10.8 (10-20) Glucose 82 (70-99) mg/dl Calcium 8.4 L (8.5-10.1) mg/dl Total Bilirubin 0.5 (0.2-1) mg/dl Direct Bilirubin < 0.1 (0-0.2) mg/dl AST 29 (15-37) U/L ALT 62 (12-78) U/L Alkaline Phosphatase 98 (45-117) U/L Total Protein 5.7 L (6.4-8.2) gm/dl Albumin 2.5 L (3.4-5.0) gm/dl PG Care Time/CCT Total # of Minutes Spent Total Time Spent with Patient: Total time spent is greater than 50% in coordination of care (as documented) at patient's floor/unit and/or counseling patient: Coding Diagnoses Pyelonephritis N12 Abnormal LFTs R94.5
[2020-09-26] MEDS ORDERED: DOCUSATE SODIUM/SENNA 50/8.6MG TAB PO SCH (11:15)
[2020-09-26 12:10] LABS: Appearance Urine Clear (Clear); Bacteria Urine Automated Negative (Negative); Bilirubin Urine Negative (Negative); Blood Urine Negative (Negative); Color Urine Dark Yellow; Epithelial Cell Urine Auto >30 /lpf (0-5); Glucose Urine UA Negative (Negative); Ketones Urine Negative (Negative); Leukocyte Esterase Urine Trace (Negative); Nitrite Urine Positive (Negative); Protein Urine Negative (Negative); RBC Urine Automated 0-4 /hpf (0-4); Specific Gravity Urine 1.014 (1.000-1.030); Urobilinogen Urine Negative (Negative); pH Urine 6.5 (4.5-7.5)
[2020-09-26] MEDS ORDERED: FAMOTIDINE 10 MG TABLET PO ONE (15:23)
--- NOTE | 2020-09-26 15:26 | Discharge Summary ---
Date of Service September 26, 2020 Admission HPI Per Admitting Provider Federica Monsalve is a 20yo female with no significant past medical history presenting with left flank pain which started 3 days ago - pain progressive, yesterday was very severe. She was seen at [facility] and diagnosed with a UTI, possible pyelonephritis. She was given Bactrim. Today she developed epigastric abdominal pain, nausea. She has had fever to 102.7, chills. No additional complaints at this time. ER Course: Tylenol. Ceftriaxone. Zofran, Morphine, Toradol Admission Exam Per Admitting Provider General: patient resting comfortably, NAD, non-toxic in appearance, AA&O x 4 Skin: warm, dry, intact, no rashes or lesions HEENT: NC/AT, PERRL, EOMI, anicteric sclera, conjunctiva without injection, external ear normal to inspection and nontender, nares patent, moist mucus membranes, dentition intact, no oropharyngeal lesions, neck supple, trachea midline, no LAD, no thyromegaly, no JVD Heart: +S1/S2, regular, no m/r/g Lungs: equal air entry bilaterally, no rales/rhonchi/wheezes Abd: +BS, soft, tender in epigastrium and RUQ, no masses/organomegaly/ascites Ext: warm, 2+ pulses in UE/LE bilaterally, no clubbing/cyanosis or edema Neuro: nonfocal, patient AA&O x 4, speech intact, no facial droop, moving all extremities on command with equal strength 5/5 Principal Diagnosis Pyelonephritis Discharge Exam Constitutional WD/WN, vitals as above cooperative and comfortable; no acute distress Eyes + anicteric sclerae and PERRL ENMT Ears: no hearing impairment and no external ear abnormality Neck trachea midline, no thyromegaly Respiratory normal respiratory effort, lungs clear to auscultation Cardiovascular RRR, no murmur, no edema Gastrointestinal (Abdomen) Inspection/Auscultation: abdomen normal to inspection and normal bowel sounds; abdomen not distended Percussion/Palpation: + abdomen tender (minimally tender upper abdomen reported) and abdomen soft; no guarding, abdomen not rigid and no hepatosplenomegaly Musculoskeletal no cyanosis or clubbing, extremities motor strength 5/5 Skin no rashes, warm and dry Neurologic patellar DTR's 2+ bilat, sensation intact Psychiatric A+Ox3, euthymic affect Lymphatic no lymphedema Discharge Data Allergies Allergy/AdvReac Type Severity Reaction Status Date / Time Penicillins Allergy Unknown STRONG Verified 09/25/20 00:04 FAMILY HX OF REACTIONS Consultations 09/25/20 01:54 ED Decision to Admit Stat Ordered Studies 09/25/20 00:56 CT abd pelvis IV con only Urgent 09/25/20 04:28 MR MRCP Routine Hospital Course (1) Pyelonephritis: Presented with worsening abdominal pain, nausea, fever after being seen by [facility] for suspected UTI Had been given Bactrim and took total of 3 doses before coming to ER WBC 14.2k on admission --> improved to 6.7k, afebrile Blood cultures drawn on admission, however patient did receive PO abx TRIBAL DELEGATE-- NGTD at time of discharge CTAP with evidence of left sided pyelonephritis. UA +bacteria, >30WBC. Culture Gardnerella like bacilli here but again, received Bactrim x 3 doses prior to collection. --> Discussed with [facility] 09/26 and cultures not yet back at this time. Due to COVID these have taken approximately 4-5 days for results. --> Melly (MELISSA from Urgent Care) is to call me with sensitivities and we can make changes as needed if resistant Was on Ceftriaxone IV while inpatient -->Discharged on Cipro PO to complete 7 day course along with short course of oxycodone and zofran. Educated on continued bowel regimen to prevent constipation (she did have small BM prior to d/c) (2) Abnormal LFTs: Mildly elevated AST/ALT with normal Tbili on admission Likely secondary to Bactrim Reported RUQ tenderness CTAP with some enlargement in CBD of 8mm MRCP done and without evidence for acute katy or choledocholithiasis LFTs back to wnl prior to discharge Sent with prescription for protonix 40mg daily for next month for reflux as well and to follow up with PCP if needs to continue Total Time Total Time Spent Total Time Spent (In Minutes): 65 Discharge Plan Discharge Items Patient Disposition: Home - Self-Care Reason For Visit: PYELONEPHRITIS, ABNORMAL FT'S Discharge Diagnosis: Pyelonephritis Goals: You have been hospitalized for an acute medical problem. During your stay at [facility], we have made an effort to correct the problem that brought you to the hospital while keeping you as comfortable as possible. Medications were used to bring your condition under control and your discharge instructions will include directions for any medications you should take after leaving the hospital. Please make sure you see your Primary Care Provider as part of your follow up plan. Activity: Resume your previous activity Non-emergency contact: Primary Care Provider Call non-emergency contact if: you have any medication questions, your symptoms worsen and your pain is not controlled Follow-up/Referrals: [facility] [Primary Care Provider] - 09/30/20 11:20 am (You will be seeing Dr. Damon for your follow up appt. Please bring your discharge paper work from [facility] with you to this appt. If you are unable to make this appt, please call [phone] Option #2.) Diet: Regular Addtl Attending Provider Instructions: You have been hospitalized for abdominal pain and UTI. You were previously treated with Bactrim and this can cause elevation in liver enzymes which have normalized on repeat labs. An MRCP was performed to look at your gallbladder, and this did not show any evidence for acute infection. Cat scan of your abdomen/pelvis was performed which showed acute pyelonephritis (infection up into your urinary tract infection). No evidence for stones. You were treated with IV Rocephin while in the hospital. Urine culture from [facility] still not resulted and will take another day or two. Culture from this admission did not show infectious bacteria likely because of already being on antibiotics. Decision was made to sent prescription for Ciprofloxacin 500mg by mouth TWICE daily for a total treatment of 7 days. You have already gotten 2 days of IV antibiotics, so you will have 5 more days of treatment which you should begin tonight. You have been provided pain medicine, oxycodone with relief and have been sent a prescription to take as needed for breakthrough pain but can also utilize ibuprofen for other non-severe pain. For upper abdominal discomfort, this could be some reflux/gastritis from antibiotics and you have been sent a prescription for reflux medication, pantoprazole 40mg by mouth daily for the next 3-4 weeks. You may discuss with your doctor if you need this continued if symptoms are persistent after antibiotics are completed. Please note that this does worsen constipation, and you should continue a bowel regimen with miralax and colace/docusate as needed to help you regulate this. Please continue to stay well hydrated to ensure resolution. If you experience any increased pain, fever, inability to keep up with fluids, or for any other symptoms that are concerning for you, please return to the emergency department. Please follow up with [facility] in the next week to monitor your progress. It has been a pleasure being a part of the medical team providing for you while you have been in the hospital. Take care! Pending Studies at Discharge: Yes Studies:: Blood cultures -- NO GROWTH TO DATE Stand-Alone Forms: My [facility], Opioid Pain Management, Work/School Release (Inpt) Medications and DC Order Prescriptions: New oxycodone 5 mg Tablet 5 mg PO Q4 PRN (Reason: pain) Qty: 12 RF: 0 polyethylene glycol 3350 [Miralax] 17 gram Powder In Packet 17 g PO DAILY 14 Days RF: 0 sennosides-docusate sodium [Senokot-S] 8.6-50 mg Tablet 1 tab PO QAM 10 Days Qty: 10 RF: 0 ciprofloxacin HCl 500 mg tablet 500 mg PO BID Qty: 10 RF: 0 ondansetron 4 mg tablet,disintegrating 4 mg PO Q6H PRN (Reason: nausea and vomiting) Qty: 10 RF: 0 pantoprazole 40 mg tablet,delayed release (DR/EC) 40 mg PO DAILY 28 Days Qty: 28 RF: 0 Continued phenazopyridine [Pyridium] 200 mg Tablet 200 mg PO TID PRN (Reason: BLADDER PAIN) RF: 0 sumatriptan succinate 50 mg Tablet 0 mg PO .COMPLEX RF: 0 Control Pill 1 tab PO DAILY RF: 0 Discontinued sulfamethoxazole-trimethoprim [Bactrim DS] 800-160 mg Tablet 1 tab PO BID RF: 0 acetaminophen [Tylenol Extra Strength] 500 mg Tablet 500 mg PO DIRECTED PRN (Reason: Pain) RF: 0 Discharge Orders: Discharge Order (Routine); Ordered 09/26/20 Ordered By: Birgit Araujo Admission Data Admit Date/Time: 09/25/20 03:06 Attending Provider: Sheri Ashraf Admit Provider: Lourdes Norman Primary Care Provider: [facility] Other Interventions: Discharge Summary Assessment (RN) Last Done: 09/26/20 15:55 Supervising Physician Co-Signing Physician Notes PA Supervision Note: I personally saw and examined the patient. I verified all rico points and agree with MELISSA Araujo with the following exceptions and/or additions: S-Pt feeling much better, is eating and drinking, pain much improved in flank and abdomen. Afebrile. O- Vitals reviewed Gen: [AAOx3, NAD] HEENT: [anicteric sclerae, EOMI] CV: [RRR no mgr nl S1S2] Pulm: [CTAB no wcr] Abd: [+BS soft NT ND no masses or hernias] Ext: [no edema, 2+ DP pulses] Skin: [no rashes, warm/dry] Neuro: [full strength throughout] A/P-20 yo female here with acute pyelonephritis, elevated LFTs, now greatly improved, stable for dc to home Coding Level of Care Code 26378 OBS Care - Discharge Diagnoses Pyelonephritis N12 Abnormal LFTs R94.5
== END 2020-09-26 17:35 | disposition home or self-care (01) ==
LOC: ED 23:25 → 3E 23:25 → SUATTDRO 09-25 03:06 → 3E 09-25 03:54